=== PATIENT | male | born 1970 | race Caucasian/White ===

== ENCOUNTER 2023-09-05 14:36 | Inpatient (IN) | payer BC, SELFPAY ==
[2023-09-05] VITALS (11 sets, daily range): BP systolic 74–164; BP diastolic 88–100; BMI 23.7
[2023-09-05] MEDS: OMNIPAQUE 50 ML PO (08:46)
--- NOTE | 2023-09-05 09:22 | ED.GENMED ---
History of Present Illness
General
Chief Complaint: Post Operative Problem(s)
Source: patient and spouse
Exam Limitations: none
Time Seen by Provider: 09/05/23 08:30
Travel History
Have you had any contact with someone who has COVID-19?: No
Do you have any symptoms of coronavirus? Fever > 100 degrees, chills, cough, shortness of breath, sore throat, loss of taste or smell, muscle aches, or headache?: No
History of Present Illness
History of Present Illness:
53-year-old male presents with fever. Patient recently had ileostomy reversal. Patient is a history of colovesicular fistula. Patient woke up today and felt like something was wrong. measured his temperature and he was noted to be febrile.
Patient states he does have pain at his incision but does not feel any different than it had been. Is mostly there when he tries to move. He does admit that he felt little short of breath today. No real cough. No rash. No drainage from his
wound. No dysuria. Patient was discharged earlier this week but over the week progressed his diet.
Past History
Past History
ED Past Medical History: CHF, HTN, Hypercholesterolemia, [place] and Other (Diverticulitis, Takotsubo, sepsis. )
ED Past Surgical History: Orthopedic and Other (Loop ileostomy)
Social History
Tobacco: Former smoker
Alcohol: Former
Drug: None
Personal:
Living: with family
Phy Exam
Physical Exam
Physical Exam:
CONSTITUTIONAL Patient alert and oriented to person, place and time. Well-appearing. Vital signs reviewed.
HEAD atraumatic, normocephalic.
EYES eyelids normal to inspection, Pupils equally round and reactive to light, Extraocular muscles intact, Conjunctiva normal, Sclera normal.
NECK normal range of motion, Trachea midline, no jugular venous distention.
RESPIRATORY CHEST No respiratory distress noted, Chest expansion equal, Bilateral breath sounds clear.
CARDIOVASCULAR regular rate and rhythm, Heart sounds normal.
ABDOMEN right abdominal wound noted that is intact and without drainage or redness. There are gina intact. Bowel sounds normal. No distention.
BACK normal inspection, no obvious deformities
UPPER EXTREMITY range of motion normal, Motor strength normal, no cyanosis, no edema.
LOWER EXTREMITY range of motion normal, Motor strength normal, no cyanosis, no edema.
NEURO Speech normal, No focal motor deficits, Jonathan coma scale 15, Memory normal, Cranial Nerves intact to screening exam.
SKIN skin warm, dry, and normal in color.
PSYCHIATRIC patient oriented to person place and time, Normal affect.
Course
Orders/Labs/Results
Orders:
Orders
09/05/23
US Abdomen Limited Urgent
Reason For Exam: DONE IN [facility] - NO FLUID FOR PARA
09/05/23 08:31
CT Abd/pel W Iv And Oral Contr Urgent
Comment:
Reason For Exam: abd pain, recent ileostomy reversal, fever
Iohexol [Omnipaque] See Protocol PO NOW STA
09/05/23 08:57
Diphenhydramine [Benadryl] 50 mg IV NOW STA
Hydrocortisone Sod Succinate [Solu-Cortef] 200 mg IV NOW STA
09/05/23 09:03
Complete Blood Count/With Diff Urgent
Comprehensive Metabolic Panel Urgent
Lipase Urgent
09/05/23 09:10
CR Chest - 2 Views Urgent
Comment:
Reason For Exam: fever
09/05/23 09:12
0.9% Sodium Chloride 1000 ml [Nss] 1,000 ml IV BOLUS
09/05/23 09:52
COVID-19 Antigen Urgent
Source: Nasal Swab
Lactic Acid Q4H
Comment: CANCEL 2nd LACTIC ACID IF 1st LACTIC ACID IS LESS THAN 2
Blood Culture Q30M
YUMIKO Source: Blood/Venous
Specimen Description:
Blood Culture Q30M
YUMIKO Source: Blood/Venous
Specimen Description:
Influenza A+B Rapid Molecular Stat
YUMIKO Source: Nasal Swab
Specimen Description:
09/05/23 10:42
Morphine Sulfate 4 mg IV NOW STA
09/05/23 11:49
HYDROmorphone [Dilaudid] 0.5 mg IV NOW STA
09/05/23 11:52
Urinalysis Reflex To Culture Urgent
Date Specimen was Collected: 09/05/23
Time Specimen was Collected: 11:52
09/05/23 12:05
Consult Interventional Radiology [[facility] CONSULT] Urgent
Consulting Provider: Fabio Gordon
Was physician already notified: Yes
Reason for consult: aspiration of pelvic fluid
09/05/23 12:17
Bladder Scan NOW
Follow Bladder Retention/Intermittent Cath Algorithm?: No
09/05/23 12:21
Cefepime HCl [Maxipime] 2,000 mg IV NOW STA
Vancomycin 1 Gram/200 ml [Vancocin] 1 gram in 200 ml IV NOW
09/05/23 13:15
Lactic Acid Q4H
Comment: CANCEL 2nd LACTIC ACID IF 1st LACTIC ACID IS LESS THAN 2
Abnormal Lab Results
09/05/23
09:03
WBC 4.4 L 10^3/uL
(4.8-10.8)
RBC 3.47 L 10^6/uL
(4.70-6.10)
Hgb 10.5 L g/dL
(13.0-18.0)
Hct 32.7 L %
(39.0-52.0)
MCV 94.2 H fL
(80.0-94.0)
MCHC 32.1 L g/dL
(33.0-37.0)
MPV 11.6 H fL
(7.4-10.4)
Absolute Lymphs (auto) 0.4 L 10^3/uL
(1.2-3.4)
Neutrophils % 77.9 H %
(42.2-75.2)
Lymphocytes % 9.4 L %
(20.5-51.1)
Monocytes % 10.8 H %
(1.7-9.3)
Potassium 3.3 L mmol/L
(3.5-5.1)
Carbon Dioxide 31 H mmol/L
(22-30)
Glucose 100 H mg/dl
(70-99)
ALT 54 H U/L
(0-50)
09/05/23 09:03
09/05/23 09:03
Vital Signs
Initial and Last Documented VS:
Initial Vital Signs
Temp Pulse Resp BP Pulse Ox
101.3 F H 71 20 133/88 94
09/05/23 08:24 09/05/23 08:24 09/05/23 08:24 09/05/23 08:24 09/05/23 08:24
Last Documented Vital Signs
Temp Pulse Resp BP Pulse Ox
99.5 F 73 28 148/95 89
09/05/23 12:02 09/05/23 13:04 09/05/23 13:04 09/05/23 12:02 09/05/23 13:04
MDM/Problems Addressed
Differential Diagnosis Includes:
Wound infection, atelectasis, pneumonia, COVID, influenza, intra-abdominal infection, electrolyte imbalance
MDM/Problems Addressed:
Fever
*Pulse Oximetry
Patient hypoxic: no
*Cash Checker Interpretation
Rate: normal
Interpretation: normal
Rhythm: sinus
*Critical Care Note
Total Time (30-74mins, 75-104mins- exclusive of procedures): Not Applicable
Data Reviewed
Review of Other/Old Records Reveals: Operative Reports (August operative note reviewed) and Discharge Summary (August 2023 discharge packet reviewed)
Source: patient and spouse
Prescriptions/Medications Considered But Not Given:
Considered antibiotics but hold off pending testing for now
ED Attending Note
-
Portions of this chart may have been created with voice recognition software.� Occasional wrong word or��sound alike� substitutions may have occurred due to the inherent limitations of voice recognition software.
Discharge Plan
Departure
Prescriptions:
No Action
trazodone 50 mg Tablet
50 mg PO HS
Entresto 24-26 mg tablet
0.5 tab PO BID
folic acid 1 mg Tablet
1 mg PO DAILY
gabapentin 100 mg capsule
100 mg PO TID
magnesium oxide 500 mg Tablet
500 mg PO DAILY Qty: 30 0RF
cholecalciferol (vitamin D3) [Thera-D] 50 mcg (2,000 unit) tablet
50 mcg PO DAILY Qty: 30 0RF
potassium 99 mg Tablet
99 mg PO DAILY
nicotine 21 mg/24 hr Patch 24 Hour
1 patch TRANSDERMAL DAILY
metoprolol succinate [Toprol XL] 50 mg Tablet Extended Release 24 Hr
50 mg PO BID
cyanocobalamin (vitamin B-12) 1,000 mcg Tablet
1,000 mcg PO DAILY
aspirin 81 mg Tablet,Delayed Release (Dr/Ec)
81 mg PO DAILY
pantoprazole [Protonix] 40 mg Tablet,Delayed Release (Dr/Ec)
40 mg PO DAILY
rosuvastatin [Crestor] 20 mg Tablet
20 mg PO QPM
tramadol 50 mg tablet
50 mg PO HS
Referrals:
Sanjay Tovar MD [Family Provider] -
Interventions
Interventions:
ED-Skin Assessment Last Done: 09/05/23 09:45
[2023-09-05 09:28] LABS: % Basophils 0.5 % (0-2); % Eosinophils 0.9 % (0-6); % Immature Granulocytes 0.5 % (0-0.5); % Lymphocytes 9.4 % (20.5-51.1); % Monocytes 10.8 % (1.7-9.3); % Neutrophils 77.9 % (42.2-75.2); Absolute Lymphocytes 0.4 10^3/uL (1.2-3.4); Absolute Monocytes 0.5 10^3/uL (0.1-0.6); Absolute Neutrophils 3.4 10^3/uL (1.4-6.5); Hematocrit 32.7 % (39.0-52.0); Hemoglobin 10.5 g/dL (13.0-18.0); Mean Corp Hgb Conc. 32.1 g/dL (33.0-37.0); Mean Corpuscular Hgb 30.3 pg (27.0-31.0); Mean Corpuscular Volume 94.2 fL (80.0-94.0); Mean Platelet Volume 11.6 fL (7.4-10.4); Nucleated Red Blood Cells % 0 % (-); Platelet Count 162 10^3/uL (130-400); Red Blood Cell Count 3.47 10^6/uL (4.70-6.10); Red Cell Dist. Width 13.5 % (11.5-14.5); White Blood Cell Count 4.4 10^3/uL (4.8-10.8)
[2023-09-05 09:44] LABS: ALT (SGPT) 54 U/L (0-50); AST (SGOT) 51 U/L (17-59); Alkaline Phosphatase 84 U/L (38-126); Blood Urea Nitrogen 10 mg/dl (9-20); Calcium 8.7 mg/dl (8.4-10.2); Carbon Dioxide 31 mmol/L (22-30); Chloride 100 mmol/L (98-107); Glucose 100 mg/dl (70-99); Lipase 83 U/L (23-300); Potassium 3.3 mmol/L (3.5-5.1); Sodium 137 mmol/L (135-145); Total Bilirubin 0.4 mg/dl (0.2-1.3); Total Protein 6.4 g/dl (6.3-8.2); eGFR > 60.00
[2023-09-05 10:05] LABS: Lactic Acid 0.9 mmol/L (0.7-2.0)
[2023-09-05] MEDS: NSS 1000 IV ×2 (10:14→16:02)
[2023-09-05 11:12] LABS: COVID-19 Antigen Negative (Negative)
[2023-09-05] MEDS: DILAUDID 0.5 MG IV ×3 (11:54→20:57)
[2023-09-05 12:09] LABS: Urine Albumin Trace (Neg - Trace); Urine Bilirubin Negative (Negative); Urine Character Clear (Clear); Urine Color Yellow; Urine Glucose Negative (Negative); Urine Ketone Negative (Negative); Urine Leukocyte Negative (Negative); Urine Nitrite Negative (Negative); Urine Occult Blood Negative (Negative); Urine Specific Gravity 1.005 (<1.030); Urine Urobilinogen Negative (Neg - 1+)
[2023-09-05] MEDS: MAXIPIME 2000 MG IV (13:05)
[2023-09-05] MEDS: VANCOCIN 200 IV (13:06)
--- NOTE | 2023-09-05 13:37 | HPS.HSE ---
Addendum entered and electronically signed by Hardik Mazariegos MD 09/05/23 14:18:
I saw and examined the patient.
The PA's note was reviewed and I agree with the note.
Comment:
Seen in am with PA.
History, vitals, labs, imaging reviewed. Patient seen and examined.
53 yo M POD 9 s/p loop ileostomy takedown by me with increased abdominal pain/fever this am of unclear cause. Tm 101.3 in ER. HR normal (on Beta blockade). WBC 4.4 with left shift; lytes and lactate ok. UA negative. Imaging reviewed with Drs.
Curtis and Heidi. CXR and CT with basilar lung opacities. CT with no free air or obstruction; no extravasation of oral contrast at SB anastomosis; pelvic anastomosis looks reasonable; small volume free fluid in pelvis--US aspiration
considered by IR but unable to be performed due to technical issues. On exam patient's incision looks fine. Fairly tender lower abdomen. Tough situation as cause of fever and pain not clear and exam difficult to interpret as I recall him being
sensitive on abdominal exam after his prior 2 surgeries. Discussed situation in detail with his patient and his . I told them exploratory laparotomy is an option however there is no obvious anastomotic leak radiographically. Another option
would be medical support, empiric antibiotics and seeing how he does. Decided jointly to admit, empiric IV antibiotics, pain management, IV hydration and seeing how he does. If no improvement surgery will be considered. All questions answered.
Original Note:
Family Physician
-
Family Physician: Sanjay Tovar
Chief Complaint
-
abdominal pain/fever/sob
History of Present Illness
53-year-old male, with recent ileostomy reversal, presents to the emergency department due to intense abdominal pain, fever, and shortness of breath that started at 4 AM this morning. He underwent an ileostomy reversal on 08/27/[address] Mazariegos
due to a prior history of a loop ileostomy secondary to sigmoid diverticulitis with colovesical fistula. He was discharged on postop day 5. Prior to this he had underwent a robotic sigmoidectomy, takedown of colovesical fistula, loop ileostomy on
06/04/2023. He has been doing well until this morning. In the ER his WBC is 4.4. He has a fever of 101.3. He underwent a CT abdomen and pelvis which showed bibasilar atelectasis, mild ascites, and intact anastomosis, and moderately distended
urinary bladder. He was brought to IR for an attempt at aspirating some of the pelvic fluid, however this was not successful due to the deep location. He was started on cefepime and vancomycin while in the ER. We are admitting for further fever
workup.
Medical History
Past Medical History
Past Medical History: Reports Other (colovesicular fistula and interloop colonic fistulas/sigmoid diverticulitis status post recent robotic sigmoidectomy with takedown of fistula and washout, history of prostatic abscess status post pelvic drain,
chronic anemia, Takotsubo cardiomyopathy, GERD, hyponatremia, alcohol use disorder, former)
Past Surgical History: Reports Other (robotic sigmoidectomy with takedown of colovesicular fistula with loop ileostomy creation and cystoscopy placement of bilateral ureteral catheters with urology, recent ileostomy reversal with Dr. Mazariegos on
08/27/2023)
Social History
Tobacco: Non-smoker
Alcohol: Former
Personal:
Family History
Family History: Not pertinent
Allergies / Home Medications
Allergies reflects when Allergies were last updated in [employer].
Home Medications with original date entered in [employer]
Allergy/Medication List:
Allergies:
Codeine - nausea/vomiting
Ibuprofen - unknown
Morphine - hypotension
Medications:
Aspirin 81mg po daily
Vitamin D3 50mcg po daily
Vitamin B-12 1000mcg po daily
Entreto 0.5 tab po BID
Folic Acid 1mg po Daily
Gabapentin 100mg po TID
Magnesium Oxide 500mg po daily
Toprol XL 50 mg BID
Nicotine 1patch daily
Protonix 40mg po daily
Crestor 20mg po qPM
Tramadol 50mg po HS
Trazodone 50mg po HS
Review of Systems
-
History Source: Patient
A 12 point ROS was completed and negative except as noted: Yes
Constitutional: Reports Fever
Respiratory: Reports Trouble Breathing
Abdomen/GI: Reports Abdominal Pain
Physical Exam
Vital Signs
Vital Signs
Temp Pulse Resp BP Pulse Ox
99.5 F 73 28 148/95 89
09/05/23 12:02 09/05/23 13:04 09/05/23 13:04 09/05/23 12:02 09/05/23 13:04
Physical Exam
General: Well Developed and Well Nourished
HEENT: NormoCephalic
GI: Soft, Tender (RLQ over incision, moderate) and Other (incision c/d/i)
Skin: Warm and Dry
Neuro: AO x 3
Laboratory Results
-
09/05/23 09:03
09/05/23 09:03
Laboratory Results
Lactic Acid 0.9 mmol/L (0.7-2.0) 09/05/23 09:52
Total Bilirubin 0.4 mg/dl (0.2-1.3) 09/05/23 09:03
AST 51 U/L (17-59) 09/05/23 09:03
ALT 54 U/L (0-50) H 09/05/23 09:03
Alkaline Phosphatase 84 U/L (38-126) 09/05/23 09:03
Lipase 83 U/L (23-300) 09/05/23 09:03
Data Reviewed
-
Diagnostic Radiology: Image Personally Visualized and interpreted, Report Reviewed by me, Discussed with Physician and Discussed with Patient
CT Scan: Image Personally Visualized and interpreted, Report Reviewed by me, Discussed with Physician and Discussed with Patient
Lab Data: Labs Reviewed by me, Discussed with Physician and Discussed with Patient
Old Records: Reviewed
Impression/Plan
-
Assessment: 53yo male with fever/sob/abdominal pain s/p recent ileostomy reversal
Plan:
1. CT A/P reviewed with IR. Unable to sample abdominal fluid.
2. Will start on IV Zosyn.
3. Continue NPO for now. Will start IVFS.
4. Urine cultures and blood cultures pending.
5. DVT prophylaxis.
6. Consult hospitalist for fever w/u.
7. Hypokalemia - repleting with 20meq K+. Recheck labs in Am.
8. Will hold on OR for now, but if worsens, will need to do an exploratory laparotomy. Discussed in length with patient and who are in agreement with plan.
--- NOTE | 2023-09-05 14:28 | CON.HOSP ---
Family Physician
-
Family Physician: Sanjay Tovar
Chief Complaint
-
Fever at home
History of Present Illness
54 years old male presented with fever and shivering from home. Patient underwent an ileostomy reversal on 08/27/[address] Mazariegos. No complications reported. Patient had loop ileostomy secondary to sigmoid diverticulitis with colovesical fistula.
Patient was discharged home. He denied abdominal pain. He was tolerating diet until today. He started to have abdominal discomfort and fever. He reported shortness of breath but no cough. In the emergency room, CAT scan of the abdomen pelvis
did not show free air or free fluid other than mild ascites. Ultrasound showed small ascites, unable to drain by IR. COVID test was negative. Urine test did not show infection. Patient is admitted for empiric IV antibiotic and close observation
for possible surgical exploration for possible leak if no improvement.
Medical History
Past Medical History
Past Medical History: Reports Other ( Hypertension, hyperlipidemia, anxiety, history of diverticulitis, tobacco use, Takotsubo cardiomyopathy)
Past Surgical History: Reports Other (Recent reversal of ileostomy on August 27)
Social History
Tobacco: Former Smoker
Alcohol: None
Drug: None
Personal:
Living: With Family
Employment: Employed
Family History
Family History: Reviewed & Not Pertinent
Allergies / Home Medications
Allergies reflects when Allergies were last updated in [employer].
Home Medications with original date entered in [employer]
Allergy/Medication List:
Allergies
Allergy/AdvReac Type Severity Reaction Status Date / Time
codeine Allergy Nausea / Verified 08/27/23 11:35
Vomiting
ibuprofen Allergy Pharmacy Verified 08/28/23 09:19
to Review
morphine Allergy Unknown Verified 09/05/23 08:23
Home Medications
trazodone 50 mg tablet 50 mg PO HS sleep 04/24/23
folic acid 1 mg tablet 1 mg PO DAILY Supplement 05/29/23
sacubitril 24 mg-valsartan 26 mg tablet (Entresto) 0.5 tab PO BID Heart Failure 05/29/23
gabapentin 100 mg capsule 100 mg PO TID Neurological Condition 07/02/23
cholecalciferol (vitamin D3) 50 mcg (2,000 unit) tablet (Thera-D) 50 mcg PO DAILY vit d defeciency #30 tabs 07/07/23
magnesium oxide 500 mg PO DAILY Electrolyte Repletion #30 tabs 07/07/23
nicotine 21 mg/24 hr daily transdermal patch 1 patch transdermal DAILY 08/21/23
potassium 99 mg tablet 99 mg PO DAILY 08/21/23
aspirin 81 mg tablet,delayed release 81 mg PO DAILY 09/05/23
cyanocobalamin (vitamin B-12) 1,000 mcg tablet 1,000 mcg PO DAILY 09/05/23
metoprolol succinate 50 mg tablet,extended release 24 hr (Toprol XL) 50 mg PO BID 09/05/23
pantoprazole 40 mg tablet,delayed release (Protonix) 40 mg PO DAILY 09/05/23
rosuvastatin 20 mg tablet (Crestor) 20 mg PO QPM 09/05/23
tramadol 50 mg tablet 50 mg PO HS 09/05/23
Review of Systems
-
History Source: Patient
A 12 point Review of Systems was completed except as noted: Yes
Constitutional: Reports Fever and Chills
EENT: Denies Sore Throat
Respiratory: Denies Hemoptysis
Cardiac: Denies Chest Pain
Abdomen/GI: Reports Abdominal Pain, Nausea and Vomiting
: Denies Dysuria
Musculoskeletal: Denies Joint Pain
Skin: Denies Rash
Neurological: Denies Numbness
Endocrine: Denies Temp Intolerance
Hematologic/Lymphatic: Denies Bruising
Psych: Denies Panic Disorder
Physical Exam
Vital Signs
Vital Signs
Temp Pulse Resp BP Pulse Ox
99.5 F 73 28 148/95 89
09/05/23 12:02 09/05/23 13:04 09/05/23 13:04 09/05/23 12:02 09/05/23 13:04
Physical Exam
General: Well Developed
HEENT: Anicteric and Moist Mucous Membranes
Respiratory: Clear and Other (Some rales at the bases)
Cardiac: S1/S2 and Regular Rhythm
GI: Soft and Other (Cleaned dressing on site of surgery)
Rectal: Negative Maroon Stools
Genito-urinary: No Costovertebral Tend
Musculoskeletal: No Edema
Skin: Warm; Negative Jaundice
Neuro: AO x 3; Negative Slurred Speech, Facial Droop or Tremors
Psych: Calm and Intact Judgement
Laboratory Results
-
Laboratory Results
09/05/23 09:03
09/05/23 09:03
Lactic Acid 0.9 mmol/L (0.7-2.0) 09/05/23 09:52
Total Bilirubin 0.4 mg/dl (0.2-1.3) 09/05/23 09:03
AST 51 U/L (17-59) 09/05/23 09:03
ALT 54 U/L (0-50) H 09/05/23 09:03
Alkaline Phosphatase 84 U/L (38-126) 09/05/23 09:03
Lipase 83 U/L (23-300) 09/05/23 09:03
Impression / Plan
-
IMPRESSION:
53 years old male who presented with fever and complaint of abdominal pain status post recent reversal of ileostomy
#Fever, abdominal discomfort. Recent abdominal surgery.
Continue citrate NPO. Bowel rest. IV fluid. Empiric antibiotic. GI prophylaxis with PPI close monitoring of temperature curve and clinical symptoms.
#Nausea and vomiting. Will give IV Zofran.
# Primary hypertension. He is on Entresto twice a day with metoprolol.
Will continue with metoprolol but changed to IV and cardiac monitoring. Hold Entresto for now.
# DVT prophylaxis
Total time spent to see the patient on the floor, examine the patient, review data and lab results, discuss treatment plan with patient, his , ER doctor and nursing staff around 75 minutes
[2023-09-05] MEDS: ZOFRAN 4 MG IV (15:16)
[2023-09-05] MEDS: KCL 260 MEQ IV (15:19)
[2023-09-05] MEDS: LOVENOX 40 MG SC (19:30)
[2023-09-05] MEDS: ZOSYN 50 IV (19:31)
--- NOTE | 2023-09-05 19:59 | PTCARENOTE ---
Pt came from ED with potassium running and on 2L O2. Placed on tele #[id number] NSR. Oriented to room and use of call parker. Call parker within reach.
[2023-09-06] VITALS (7 sets, daily range): BP systolic 138–166; BP diastolic 70–93
[2023-09-06] MEDS: NSS 1000 IV ×3 (00:46→13:30)
[2023-09-06] MEDS: ZOSYN 50 IV ×5 (00:46→23:19)
[2023-09-06] MEDS: DILAUDID 0.5 MG IV ×5 (02:05→23:27)
[2023-09-06 07:00] LABS: % Basophils 0.4 % (0-2); % Eosinophils 0.4 % (0-6); % Immature Granulocytes 0.4 % (0-0.5); % Lymphocytes 30.5 % (20.5-51.1); % Monocytes 12.7 % (1.7-9.3); % Neutrophils 55.6 % (42.2-75.2); Absolute Lymphocytes 1.5 10^3/uL (1.2-3.4); Absolute Monocytes 0.6 10^3/uL (0.1-0.6); Absolute Neutrophils 2.8 10^3/uL (1.4-6.5); Hematocrit 28.7 % (39.0-52.0); Hemoglobin 9.1 g/dL (13.0-18.0); Mean Corp Hgb Conc. 31.7 g/dL (33.0-37.0); Mean Corpuscular Hgb 30.3 pg (27.0-31.0); Mean Corpuscular Volume 95.7 fL (80.0-94.0); Mean Platelet Volume 11.8 fL (7.4-10.4); Nucleated Red Blood Cells % 0 % (-); Platelet Count 147 10^3/uL (130-400); Red Cell Dist. Width 13.7 % (11.5-14.5)
[2023-09-06 07:20] LABS: Blood Urea Nitrogen 12 mg/dl (9-20); Calcium 7.8 mg/dl (8.4-10.2); Carbon Dioxide 27 mmol/L (22-30); Chloride 104 mmol/L (98-107); Estimated Creatinine Clearance 74 ml/min; Glucose 87 mg/dl (70-99); Potassium 3.5 mmol/L (3.5-5.1); Sodium 135 mmol/L (135-145); eGFR > 60.00
[2023-09-06] MEDS: NSS (PRESERVATIVE FREE) 10 ML IV (09:14)
[2023-09-06] MEDS: PROTONIX IV 40 MG IV (09:15)
[2023-09-06] MEDS: ASPIR LOW (ENTERIC COATED) 81 MG PO (09:15)
--- NOTE | 2023-09-06 10:42 | W.PN.HOSP.TC ---
Addendum entered and electronically signed by Jacqueline Romero MD 09/06/23 13:11:
Addendum
Patient was sent for for CT chest to rule out PE and was unable to do it
Went to see pt, he just reported pain and could not lie flat
Medicate with IV Dilaudid and Zofran
CT result to follow
End
Original Note:
Today's Communication/Plan
-
.
Assessment / Plan
Assessment / Plan
Physical Exam
General: Well Developed
HEENT: Anicteric and Moist Mucous Membranes
Respiratory: Clear and Other (Some rales at the bases)
Cardiac: S1/S2 and Regular Rhythm
GI: Soft and Other (Cleaned� dressing on site of surgery) Tenderness in mid abdomen
Rectal: Negative Maroon Stools
Genito-urinary: No Costovertebral Tend
Musculoskeletal: No Edema
Skin: Warm; Negative Jaundice
Neuro: AO x 3; Negative Slurred Speech, Facial Droop or Tremors
Psych: Calm and Intact Judgement
53 years old male who presented with fever and complaint of abdominal pain status post recent reversal of ileostomy
#Fever, abdominal discomfort.� Recent abdominal surgery. Suspect acute peritonitis.
He reports that pain in abdomen is the same, no fevers this morning
Continue NPO.� Bowel rest.� IV fluid.� Empiric antibiotic.� GI prophylaxis with PPI close monitoring of temperature curve and clinical symptoms.
#Nausea and vomiting.� Seems not significant, c/w PRN IV Zofran.
# Bilateral basal atelectasis
SaO2 around 99% on RA
Chest x ray no active disease
c/w O2, encourage use of incentive spirometry
# Primary hypertension.� He is on Entresto twice a day with metoprolol.
Add PRN Hydralazine
# Sinus bradycardia, cut back on BB with hodling parameters.
# DVT prophylaxis
# Hypokalemia, resolved.
Total time spent to see the patient on the floor, examine the patient, review data and lab results, discuss treatment plan with patient, and nursing staff around 55 minutes
Anticipated Discharge: > 48 hours
Subjective/Interval History
-
Date of Service: September 06, 2023
Still in pain, no nausea or fever this morning
Objective Data
-
Labs:
Laboratory Results
09/06/23
06:43
WBC 5.0
Hgb 9.1 L
Hct 28.7 L
Plt Count 147
Sodium 135
Potassium 3.5
Chloride 104
Carbon Dioxide 27
BUN 12
Creatinine 1.2
Glucose 87
Calcium 7.8 L
Vital Signs:
Vital Signs
Temp Pulse Resp BP Pulse Ox
98.6 F 52 16 140/89 99
09/06/23 07:50 09/06/23 07:50 09/06/23 07:50 09/06/23 07:50 09/06/23 07:50
I&O
09/05/23 09/06/23 09/07/23
06:59 06:59 06:59
Intake Total 50 / 50
Balance 50 / 50
--- NOTE | 2023-09-06 10:46 | CM ---
CM following re: discharge planning.
Reviewed pt's chart, met with pt.
Pt is a 53 year old male, admitted with primary dx of
Patient stated he lives with his and two adult sons, 24, 21 in a two story home with two steps to enter and one full flight of steps from the first floor to the second.
Patient described himself as independent with his ADLs, bathing, dressing and personal care. He drives and can get to his appointments. 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 If patient is unable to drive either his
sons take him to his appointments, do the shopping or his assists. Pt is known to [facility]. No SNF history.
Patient has hand rails, a shower chair and a grab bar in the shower.
PCP: Dr. Sanjay Tovar.
Pharmacy: [facility]
D/C plan: home with anticipated no needs. spouse to transport.
CM will follow with discharge plan updates as hospitalization progresses
[2023-09-06] MEDS: LOPRESSOR IV ×3 (11:20→17:36)
--- NOTE | 2023-09-06 11:21 | W.PN.CRS1 ---
Addendum entered and electronically signed by Hardik Mazariegos MD 09/06/23 14:42:
I saw and examined the patient.
The PA's note was reviewed and I agree with the note.
Comment:
Seen earlier with PA.
Abdominal discomfort about the same. Had a regular BM earlier. Denies nausea or vomiting. Admits to dyspnea.
Vitals reasonable. White count normal at 5.0.
Abdomen nondistended. Incision looks good. Still with some lower abdominal tenderness. No skin changes.
Given dyspnea, I was concerned about the possibility of DVT/PE. Lower extremity ultrasound and CT chest to rule out PE was ordered and performed. No evidence for DVT or PE. Bibasilar infiltrate noted with possible progression. Question pneumonia.
Continue antibiotics. Keep n.p.o. for now. Hope to resume diet tomorrow.
Appreciate hospitalist help.
Original Note:
Today's Communication / Plan
-
CT chest
LE U/S
remain NPO
Assessment/Plan
-
Assessment: 53yo male with fever/sob/abdominal pain s/p recent ileostomy reversal
Plan:
1. WBC improved, now 5.0. Afebrile overnight.
2. Continue IV Zosyn.
3. Continue NPO for now. Continue IVFs.
4. Blood cultures pending.
5. DVT prophylaxis.
6. Consult hospitalist for fever w/u.
7. Given SOB, will order LE U/S and CT chest PE protocol.
8. Will hold on OR for now, but if worsens, will need to do an exploratory laparotomy.
Subjective Data
Subjective Data
Date of Service: September 06, 2023
Patient states he had sweats overnight that broke. He is still short of breath. He has no leg pain. His abdominal pain has lessened.
Objective Data
-
Vital Signs
Temp Pulse Resp BP Pulse Ox
98.4 F 53 16 146/93 98
09/06/23 10:57 09/06/23 10:57 09/06/23 10:57 09/06/23 10:57 09/06/23 10:57
Intake & Output
09/05/23 09/06/23 09/07/23
06:59 06:59 06:59
Intake Total 50 / 50
Balance 50 / 50
Intake:
Oral fluids 50 / 50
Other:
Number of approximated MODERATE 2
amounts of urine
Lab Results
09/06/23 06:43
09/06/23 06:43
Physical Exam
-
General: No Acute Distress and AOx3
Abdomen: Soft, Non Distended and Tender (RLQ - mild)
Skin: Warm and Dry
Incision: Clear, Dry, Intact
[2023-09-06] MEDS: ZOFRAN 4 MG IV (12:26)
[2023-09-06] MEDS: LOVENOX 40 MG SC (17:39)
[2023-09-06] MEDS: APRESOLINE 5 MG IV (20:18)
[2023-09-06] MEDS: DESYREL 50 MG PO (22:11)
[2023-09-06] MEDS: LOPRESSOR 2.5 MG IV (23:18)
[2023-09-07] MEDS: NSS 1000 IV ×2 (00:14→12:35)
[2023-09-07 03:13] VITALS: BP 149/90
[2023-09-07] MEDS: DILAUDID 0.5 MG IV ×5 (05:06→21:55)
[2023-09-07] MEDS: ZOSYN 50 IV ×4 (05:06→23:06)
[2023-09-07] MEDS: LOPRESSOR IV ×3 (05:36→17:12)
[2023-09-07 06:00] VITALS: BMI 24.6
[2023-09-07 06:41] LABS: Hematocrit 28.9 % (39.0-52.0); Hemoglobin 9.3 g/dL (13.0-18.0); Mean Corp Hgb Conc. 32.2 g/dL (33.0-37.0); Mean Corpuscular Hgb 29.7 pg (27.0-31.0); Mean Corpuscular Volume 92.3 fL (80.0-94.0); Mean Platelet Volume 11.6 fL (7.4-10.4); Platelet Count 141 10^3/uL (130-400); Red Blood Cell Count 3.13 10^6/uL (4.70-6.10); Red Cell Dist. Width 13.4 % (11.5-14.5); White Blood Cell Count 5.4 10^3/uL (4.8-10.8)
[2023-09-07 07:00] VITALS: BP 130/86
[2023-09-07 07:50] LABS: ALT (SGPT) 49 U/L (0-50); AST (SGOT) 34 U/L (17-59); Albumin 3.1 g/dl (3.5-5.0); Alkaline Phosphatase 94 U/L (38-126); Blood Urea Nitrogen 9 mg/dl (9-20); Calcium 7.8 mg/dl (8.4-10.2); Carbon Dioxide 23 mmol/L (22-30); Chloride 100 mmol/L (98-107); Estimated Creatinine Clearance 69 ml/min; Glucose 64 mg/dl (70-99); Potassium 3.4 mmol/L (3.5-5.1); Sodium 133 mmol/L (135-145); Total Bilirubin 0.5 mg/dl (0.2-1.3); Total Protein 5.3 g/dl (6.3-8.2); eGFR > 60.00
[2023-09-07] MEDS: ASPIR LOW (ENTERIC COATED) 81 MG PO (08:49)
[2023-09-07] MEDS: NSS (PRESERVATIVE FREE) 10 ML IV (08:49)
[2023-09-07] MEDS: PROTONIX IV 40 MG IV (08:50)
[2023-09-07 11:00] VITALS: BP 143/90
--- NOTE | 2023-09-07 11:06 | W.PN.CRS1 ---
Today's Communication / Plan
-
clears
continue iv abx
Assessment/Plan
-
Assessment: 53yo male with fever/sob/abdominal pain s/p recent ileostomy reversal
Plan:
1. WBC improved, now 5.4. Afebrile overnight. Vitals normal.
2. Continue IV Zosyn.
3. Advance diet to clears. Okay for fulls later today if tolerating.
4. Blood cultures pending.
5. DVT prophylaxis.
6. Appreciate hospitalist input.
7. Lidocaine patch to RLQ area.
8. No plans for surgery at this time. Observe.
Subjective Data
Subjective Data
Date of Service: September 07, 2023
Patient states he is still short of breath. He has right lower quadrant pain when he moves. This is unchanged to surgery. His bowel movements are regular. He is hungry.
Objective Data
-
Vital Signs
Temp Pulse Resp BP Pulse Ox
98.1 F 56 18 130/86 92
09/07/23 07:00 09/07/23 07:00 09/07/23 07:00 09/07/23 07:00 09/07/23 07:00
Intake & Output
09/06/23 09/07/23 09/08/23
06:59 06:59 06:59
Intake Total 1520 / 1520
Balance 1520 / 1520
Intake:
Oral fluids 170 / 170
IV fluids (Total) 1200 / 1200
IV piggybacks 150 / 150
Other:
Number of approximated MODERATE 2
amounts of urine
Number of approximated LARGE 1
amounts of urine
Lab Results
09/07/23 06:17
09/07/23 06:17
Physical Exam
-
General: No Acute Distress and AOx3
Abdomen: Soft, Non Distended and Tender (RLQ - over incision, unchanged)
Wound: No Signs of Infection
--- NOTE | 2023-09-07 12:07 | W.PN.HOSP.TC ---
Addendum entered and electronically signed by Tomás Gill MD 09/07/23 17:46:
Patient seen and examined.
Discussed with resident.
Impression:
Status post recent ileostomy reversal presenting with abdominal pain.
Clinically no evidence for surgical complication/peritonitis.
Transient hypoxia/shortness of breath likely related to bilateral atelectasis. CT scan of the chest negative for pulmonary embolism.
Urinalysis negative.
Plan:
Diet been advanced to full liquid with plan to transition to low residue over the next 24.
Will discontinue empiric antibiotics and monitor
Wean off IV narcotics as tolerates
Wean off IV fluids as diet tolerating
Replete potassium
Monitor for worsening of hyponatremia
Original Note:
Today's Communication/Plan
-
- Kcl correction
- Monitor blood glucose levels
- Monitor for abdominal symptoms and diet toleration.
Assessment / Plan
Assessment / Plan
ASSESSMENT:
53 Yo M who presents to the ER with fever and abdominal pain on 09/02, s/p Ileostomy reversal.
PLAN:
-Fever, Abdominal Pain.�
Recent ileostomy reversal. Suspect acute peritonitis.
CT abdomen -Bibasilar atelectasis.
Mild ascites. No focal collection or abscess. No free air. No bowel obstruction or obstructive uropathy.
Anastomotic suture material in the sigmoid region. The anastomosis appears intact. No focal extraluminal air or fluid is suggested perforation.
Mid abdominal small bowel anastomosis appears widely patent. . Minimal wall thickening and subtle soft tissue stranding related to recent surgical procedure. No localized gas or fluid suggest perforation or abscess.
CT chest - No evidence of pulmonary embolus.
Moderate bibasilar consolidation which may be pneumonia or atelectasis. Progressed bilateral
Denies fever, pain in abdomen is 5/10 on sitting; 10/10 while lying flat.
Diet advanced to liquids, well tolerated.�
Empiric antibiotic.� GI prophylaxis with PPI.
Currently on Dilaudid
Bilateral basal atelectasis
SaO2 - stable on room air.
Chest x ray - no active disease.
c/w O2, encourage use of incentive spirometry.
Nausea and vomiting.�
Seems not significant, continue PRN IV Zofran.
Primary hypertension.�
He is on Entresto twice a day with metoprolol.
Currently on PRN Hydralazine
Hypokalemia -
Resolved yesterday.
09/07 - 3.4, correct with oral Kcl
Hyponatremia -
Na 09/07 -133
Monitor Serum sodium levels
Sinus bradycardia
Currently on reduced dose of metoprolol with holding parameters.
Anemia -
hb -9.3, low hematocrit and normal RDW.
DVT prophylaxis
LMWH
Anticipated Discharge: > 48 hours
Subjective/Interval History
-
Date of Service: September 07, 2023
Abdominal pain at rest - 5/10
Abdominal pain when lying flat - 10/10
Reports tightness and tenderness at the incision site.
Denies nausea, vomiting, and
Objective Data
-
Labs:
Laboratory Results
09/07/23
06:17
WBC 5.4
Hgb 9.3 L
Hct 28.9 L
Plt Count 141
Sodium 133 L
Potassium 3.4 L
Chloride 100
Carbon Dioxide 23
BUN 9
Creatinine 1.3
Glucose 64 L
Calcium 7.8 L
Total Bilirubin 0.5
AST 34
ALT 49
Alkaline Phosphatase 94
Vital Signs:
Vital Signs
Temp Pulse Resp BP Pulse Ox
98.4 F 55 20 143/90 93
09/07/23 11:00 09/07/23 11:00 09/07/23 11:00 09/07/23 11:00 09/07/23 11:00
I&O
09/06/23 09/07/23 09/08/23
06:59 06:59 06:59
Intake Total 1520 / 1520
Balance 1520 / 1520
Review of Systems
-
History Source: Patient
Constitutional: Reports Other
Abdomen/GI: Reports Abdominal Pain (starts in the center of abdomen and radiates across the RLQ into the back.)
Genitourinary: Reports No Symptoms
Musculoskeletal: Reports No Symptoms
Neuro: Reports No Symptoms
Hematologic / Lymphatic: Reports No Symptoms
Physical Exam
-
General: No Apparent Distress and Comfortable
HEENT: Normocephalic, Atraumatic and Moist Mucous Membranes
Respiratory: Clear to Auscultation and Other (no wheezes, rales and ronchi)
Cardiac: Regular Rhythm and S1/S2
GI: Nondistended, Tender (in the right lower quadrant with gaurding) and Other (grugling bowel sounds.)
Musculoskeletal: No Edema
Skin: Warm
Neuro: AO x 3 and Nonfocal/Grossly Intact
Psych: Calm
[2023-09-07] MEDS: LIDOCAINE 4% PATCH 1 PATCH TOPICAL (12:39)
[2023-09-07] MEDS: KCL 40 MEQ PO (15:03)
[2023-09-07 15:58] VITALS: BP 144/87
[2023-09-07] MEDS: LOVENOX 40 MG SC (17:57)
[2023-09-07] MEDS: TUMS 2 TABLET PO (17:57)
[2023-09-07 19:15] VITALS: BP 154/87
[2023-09-07] MEDS: APRESOLINE 5 MG IV (23:07)
[2023-09-07 23:15] VITALS: BP 165/93
[2023-09-08] MEDS: LOPRESSOR IV ×2 (01:20→05:14)
[2023-09-08] MEDS: DILAUDID 0.5 MG IV ×6 (01:50→20:39)
[2023-09-08 02:52] VITALS: BP 143/89
[2023-09-08] MEDS: ZOSYN 50 IV ×2 (05:18→12:26)
[2023-09-08 06:00] VITALS: BMI 23.9
[2023-09-08 06:48] LABS: % Basophils 0.2 % (0-2); % Eosinophils 2.4 % (0-6); % Immature Granulocytes 0.2 % (0-0.5); % Lymphocytes 23.7 % (20.5-51.1); % Monocytes 11.8 % (1.7-9.3); % Neutrophils 61.7 % (42.2-75.2); Absolute Eosinophils 0.1 10^3/uL (0-0.7); Absolute Lymphocytes 1.1 10^3/uL (1.2-3.4); Absolute Monocytes 0.5 10^3/uL (0.1-0.6); Absolute Neutrophils 2.8 10^3/uL (1.4-6.5); Hematocrit 29.4 % (39.0-52.0); Hemoglobin 9.6 g/dL (13.0-18.0); Mean Corp Hgb Conc. 32.7 g/dL (33.0-37.0); Mean Corpuscular Hgb 29.7 pg (27.0-31.0); Mean Platelet Volume 11.7 fL (7.4-10.4); Nucleated Red Blood Cells % 0 % (-); Platelet Count 145 10^3/uL (130-400); Red Blood Cell Count 3.23 10^6/uL (4.70-6.10); Red Cell Dist. Width 13.2 % (11.5-14.5); White Blood Cell Count 4.5 10^3/uL (4.8-10.8)
[2023-09-08 07:00] VITALS: BP 152/88
[2023-09-08 07:17] LABS: Blood Urea Nitrogen 5 mg/dl (9-20); Calcium 8.4 mg/dl (8.4-10.2); Carbon Dioxide 26 mmol/L (22-30); Chloride 98 mmol/L (98-107); Estimated Creatinine Clearance 81 ml/min; Glucose 88 mg/dl (70-99); Potassium 3.3 mmol/L (3.5-5.1); Sodium 136 mmol/L (135-145); eGFR > 60.00
[2023-09-08] MEDS: ASPIR LOW (ENTERIC COATED) 81 MG PO (08:38)
[2023-09-08] MEDS: NSS (PRESERVATIVE FREE) 10 ML IV (08:39)
[2023-09-08] MEDS: LIDOCAINE 4% PATCH 1 PATCH TOPICAL (08:39)
[2023-09-08] MEDS: PROTONIX IV 40 MG IV (08:42)
[2023-09-08] MEDS: KCL 40 MEQ PO (10:48)
[2023-09-08 11:00] VITALS: BP 162/94
[2023-09-08 11:28] LABS: Iron 54 ug/dl (49-181)
[2023-09-08 11:32] LABS: Procalcitonin < 0.05 ng/ml (0.0-0.25)
[2023-09-08 11:38] LABS: Percent Saturation 21 % (20-50); Total Iron Binding Capacity 246 ug/dl (261-462)
--- NOTE | 2023-09-08 12:17 | W.PN.CRS1 ---
Addendum entered and electronically signed by Hardik Mazariegos MD 09/08/23 16:36:
I saw and examined the patient.
The PA's note was reviewed and I agree with the note.
Comment:
Patient seen in a.m. with PA.
Still admits to abdominal discomfort which is unchanged. Denies dyspnea at this point. Tolerating fulls with BMs.
Afebrile with stable vital signs. White blood cell count reasonable at 4.5.
Abdomen with some lower abdominal tenderness but no distention. Incisions look good without any skin erythema.
Diet advance to low residue.
Discussed his empiric antibiotics with Dr. Hernandez of the hospital service. Dr. Gill make stop the antibiotics altogether which I am comfortable with.
Hopefully home tomorrow.
Patient's updated via phone conversation.
Original Note:
Today's Communication / Plan
-
low residue
one more day of observation
Assessment/Plan
-
Assessment: 53yo male with fever/sob/abdominal pain s/p recent ileostomy reversal
Plan:
1. WBC improved, now 4.5. Afebrile overnight. Vitals normal.
2. Continue IV antibiotics.
3. Advance diet to low residue.
4. Blood cultures pending.
5. DVT prophylaxis.
6. Appreciate hospitalist input.
7. Anticipate keeping one more day for observation. Discussed with patient.
Subjective Data
Subjective Data
Date of Service: September 08, 2023
Objective Data
-
Vital Signs
Temp Pulse Resp BP Pulse Ox
97.8 F 68 16 152/88 94
09/08/23 07:00 09/08/23 07:00 09/08/23 07:00 09/08/23 07:00 09/08/23 07:00
Intake & Output
09/07/23 09/08/2309/09/24
06:59 06:59 06:59
Intake Total 1520 / 1520 100 / 100
Balance 1520 / 1520 100 / 100
Intake:
Oral fluids 170 / 170
IV fluids (Total) 1200 / 1200
IV piggybacks 150 / 150 100 / 100
Other:
Number of approximated MODERATE 2 3
amounts of urine
Number of approximated LARGE 1
amounts of urine
Lab Results
09/08/23 05:59
09/08/23 05:59
Physical Exam
-
General: No Acute Distress and AOx3
Abdomen: Soft, Non Distended and Tender (RLQ - tenderness over incision site)
Skin: Warm and Dry
Incision: Clear, Dry, Intact
[2023-09-08] MEDS: LOPRESSOR 2.5 MG IV ×2 (12:34→19:21)
[2023-09-08 15:00] VITALS: BP 149/92
--- NOTE | 2023-09-08 15:55 | W.PN.HOSP.TC ---
Addendum entered and electronically signed by Tomás Gill MD 09/08/23 16:30:
Patient seen and examined
Discussed with resident
Discussed with colorectal surgery
Incisional pain with otherwise benign abdominal examination
Diet has been advanced. Patient will be observed for another 24 hours for tolerance
Fever with transient episode of hypoxia
Patient currently afebrile with no evidence of respiratory infection
In review of imaging including CT scan negative for pulmonary embolism with bilateral atelectasis.
Normal white count
Undetectable procalcitonin level.
Most likely bilateral atelectasis and splinting due to pain.
Discontinue antibiotics and monitor closely.
Original Note:
Today's Communication/Plan
-
Continue IV antibiotics
Continue pain medications
Gay to be removed on Thursday
Serum potassium correction.
Assessment / Plan
Assessment / Plan
ASSESSMENT:
53 Yo M who presents to the ER with fever and abdominal pain on 09/02, s/p Ileostomy reversal.
PLAN:
-Fever, Abdominal Pain.�
Recent ileostomy reversal. Suspect acute peritonitis.
CT abdomen -Bibasilar atelectasis.
Mild ascites. No focal collection or abscess. No free air. No bowel obstruction or obstructive uropathy.
Anastomotic suture material in the sigmoid region. The anastomosis appears intact. No focal extraluminal air or fluid is suggested perforation.
Mid abdominal small bowel anastomosis appears widely patent. . Minimal wall thickening and subtle soft tissue stranding related to recent surgical procedure. No localized gas or fluid suggest perforation or abscess.
CT chest - No evidence of pulmonary embolus.
Moderate bibasilar consolidation which may be pneumonia or atelectasis. Progressed bilateral
Denies fever, pain in abdomen is 5/10 on sitting; 10/10 while lying flat.
Diet advanced to liquids, well tolerated.�
Empiric antibiotic.� GI prophylaxis with PPI.
Currently on Dilaudid
Bilateral basal atelectasis
SaO2 - stable on room air.
Chest x ray - no active disease.
Patient currently using spirometry once or twice a day.
Encourage use of incentive spirometry.
Nausea and vomiting - Resolved.�
continue PRN IV Zofran.
Primary hypertension.�
He is on Entresto twice a day with metoprolol.
Currently on PRN Hydralazine
Hypokalemia -
Resolved yesterday.
09/07 - 3.4, correct with oral Kcl
Serum magnesium levels.
Hyponatremia - resolved
Na 09/07 -133
Monitor Serum sodium levels
Sinus bradycardia
Currently on reduced dose of metoprolol with holding parameters.
Anemia -
hb -9.3, low hematocrit and normal RDW.
Iron studies ordered - Normal serum iron, low TIBC
Likely nutritional now.
DVT prophylaxis
LMWH
Anticipated Discharge: 24 - 48 hours
Subjective/Interval History
-
Date of Service: September 08, 2023
Patient still reports to have incisional pain about 5/10 in intensity
Surgical gina left in place.
rebound tenderness and gaurding at the surgical incision site.
Objective Data
-
Labs:
Laboratory Results
09/08/23
05:59
WBC 4.5 L
Hgb 9.6 L
Hct 29.4 L
Plt Count 145
Sodium 136
Potassium 3.3 L
Chloride 98
Carbon Dioxide 26
BUN 5 L
Creatinine 1.1
Glucose 88
Calcium 8.4
Vital Signs:
Vital Signs
Temp Pulse Resp BP Pulse Ox
98.2 F 55 16 162/94 94
09/08/23 11:00 09/08/23 12:34 09/08/23 11:00 09/08/23 12:34 09/08/23 11:00
I&O
09/07/23 09/08/23 09/09/23
06:59 06:59 06:59
Intake Total 1520 / 1520 100 / 100
Balance 1520 / 1520 100 / 100
Review of Systems
-
History Source: Patient
Constitutional: Reports Other (Severe pain at the incision site)
Respiratory: Reports No Symptoms
Cardiac: Reports No Symptoms
Abdomen/GI: Reports Abdominal Pain, Nausea (no), Vomiting (no), Diarrhea (no), Constipated, Bloody Stools (no), Black Stools (no) and Pain
Genitourinary: Reports No Symptoms
Musculoskeletal: Reports No Symptoms
Neuro: Reports No Symptoms
Physical Exam
-
General: No Apparent Distress and Comfortable
HEENT: Normocephalic, Atraumatic and Moist Mucous Membranes
Respiratory: Clear to Auscultation and Other (No wheezes, rales and ronchi)
Cardiac: Regular Rhythm, S1/S2 and Other (No murmurs, rubs and gallops)
GI: Tender (with gaurding at the incision site)
Genito-urinary: No Costovertebral Tender
Musculoskeletal: No Edema
Skin: Warm
Neuro: AO x 3 and Nonfocal/Grossly Intact
Psych: Calm
[2023-09-08 17:11] LABS: Magnesium 1.7 mg/dl (1.6-2.3)
[2023-09-08] MEDS: LOVENOX 40 MG SC (19:22)
[2023-09-08 20:05] VITALS: BP 149/88
[2023-09-08 23:10] VITALS: BP 154/90
[2023-09-09] MEDS: LOPRESSOR IV ×2 (00:06→06:13)
[2023-09-09] MEDS: DILAUDID 0.5 MG IV ×3 (00:07→08:51)
[2023-09-09 02:16] VITALS: BP 140/81
[2023-09-09 06:00] VITALS: BMI 23.4
[2023-09-09 07:00] VITALS: BP 144/93
[2023-09-09 07:58] LABS: % Basophils 0.3 % (0-2); % Eosinophils 1.3 % (0-6); % Immature Granulocytes 0.3 % (0-0.5); % Lymphocytes 27.4 % (20.5-51.1); % Monocytes 13.2 % (1.7-9.3); % Neutrophils 57.5 % (42.2-75.2); Absolute Eosinophils 0.1 10^3/uL (0-0.7); Absolute Lymphocytes 1.1 10^3/uL (1.2-3.4); Absolute Monocytes 0.5 10^3/uL (0.1-0.6); Absolute Neutrophils 2.3 10^3/uL (1.4-6.5); Hematocrit 28.6 % (39.0-52.0); Hemoglobin 9.6 g/dL (13.0-18.0); Mean Corp Hgb Conc. 33.6 g/dL (33.0-37.0); Mean Corpuscular Hgb 29.9 pg (27.0-31.0); Mean Corpuscular Volume 89.1 fL (80.0-94.0); Mean Platelet Volume 11.8 fL (7.4-10.4); Nucleated Red Blood Cells % 0 % (-); Platelet Count 139 10^3/uL (130-400); Red Blood Cell Count 3.21 10^6/uL (4.70-6.10); Red Cell Dist. Width 13.2 % (11.5-14.5); White Blood Cell Count 3.9 10^3/uL (4.8-10.8)
[2023-09-09] MEDS: ASPIR LOW (ENTERIC COATED) 81 MG PO (08:44)
[2023-09-09] MEDS: LIDOCAINE 4% PATCH 1 PATCH TOPICAL (08:44)
[2023-09-09] MEDS: PROTONIX 40 MG PO (08:44)
[2023-09-09 08:54] LABS: Blood Urea Nitrogen 2 mg/dl (9-20); Calcium 8.6 mg/dl (8.4-10.2); Carbon Dioxide 25 mmol/L (22-30); Chloride 98 mmol/L (98-107); Estimated Creatinine Clearance 99 ml/min; Glucose 97 mg/dl (70-99); Potassium 3.3 mmol/L (3.5-5.1); Sodium 135 mmol/L (135-145); eGFR > 60.00
[2023-09-09] MEDS: KCL 40 MEQ PO (09:49)
--- NOTE | 2023-09-09 11:06 | W.PN.CRS1 ---
Today's Communication / Plan
-
discharge
Assessment/Plan
-
Assessment: 53yo male with fever/sob/abdominal pain s/p recent ileostomy reversal
Plan:
1. WBC improved, now 3.9. Afebrile overnight. Vitals normal.
2. Antibiotics discontinued by medicine yesterday.
3. Tolerating a low residue diet.
4. Blood cultures NG x 4 days.
5. DVT prophylaxis.
6. Appreciate hospitalist input.
7. Okay for discharge today. Patient does not need antibiotics on discharge. He will follow-up with his regularly scheduled appointment with Dr. Mazariegos in 2 days. Patient in agreement.
Subjective Data
Subjective Data
Date of Service: September 09, 2023
Patient states he is ready to go home. He has been out of bed. He has flatus and bowel movements. He can urinate. He has pain but it is controlled. He has been on room air.
Objective Data
-
Vital Signs
Temp Pulse Resp BP Pulse Ox
98.1 F 57 17 144/93 93
09/09/23 07:00 09/09/23 07:00 09/09/23 07:00 09/09/23 07:00 09/09/23 07:00
Intake & Output
09/08/23 09/09/23 09/10/23
06:59 06:59 06:59
Intake Total 100 / 100 680 / 680
Balance 100 / 100 680 / 680
Intake:
Oral fluids 680 / 680
IV piggybacks 100 / 100
Other:
Number of approximated MODERATE 3 4
amounts of urine
Lab Results
09/09/23 07:38
09/09/23 07:38
Physical Exam
-
General: No Acute Distress and AOx3
Abdomen: Soft, Non Distended and Tender (Mild around incision site)
Skin: Warm and Dry
Incision: Clear, Dry, Intact
--- NOTE | 2023-09-09 11:16 | W.DS.TRANS ---
DC Summary - [employer]
-
Discharge Instructions:
Sleep Apnea Risk Low
Discharge Diagnosis/Procedures fever post op
Diet Low Residue
Activity No strenuous activity
Additional Activity No lifting over 10 pounds
Driving Restrictions Not until seen by your Dr
Bathing Restrictions OK to Shower
Wound Care Continue to place a 4 x 4 and tape over wound.
Anticipate gina being removed at your
appointment with Dr. Mazariegos.
You may also take Tylenol as needed for pain.
Maximum dose of Tylenol is 4000 mg in 24 hours.
Instructions: Low Fiber Diet
Stand-Alone Forms:
Changes to Home Medications: No
Discharge Medications:
DC Medications w/original date entered in [employer]
trazodone 50 mg tablet 50 mg PO HS sleep 04/24/23
folic acid 1 mg tablet 1 mg PO DAILY Supplement 05/29/23
sacubitril 24 mg-valsartan 26 mg tablet (Entresto) 0.5 tab PO BID Heart Failure 05/29/23
gabapentin 100 mg capsule 100 mg PO TID Neurological Condition 07/02/23
cholecalciferol (vitamin D3) 50 mcg (2,000 unit) tablet (Thera-D) 50 mcg PO DAILY vit d defeciency #30 tabs 07/07/23
magnesium oxide 500 mg PO DAILY Electrolyte Repletion #30 tabs 07/07/23
nicotine 21 mg/24 hr daily transdermal patch 1 patch transdermal DAILY Smoking Cessation 08/21/23
potassium 99 mg tablet 99 mg PO DAILY Supplement 08/21/23
aspirin 81 mg tablet,delayed release 81 mg PO DAILY Blood Clot Prevention/Tx 09/05/23
cyanocobalamin (vitamin B-12) 1,000 mcg tablet 1,000 mcg PO DAILY Supplement 09/05/23
metoprolol succinate 50 mg tablet,extended release 24 hr (Toprol XL) 50 mg PO BID Blood Pressure 09/05/23
pantoprazole 40 mg tablet,delayed release (Protonix) 40 mg PO DAILY GERD 09/05/23
rosuvastatin 20 mg tablet (Crestor) 20 mg PO QPM High Cholesterol 09/05/23
tramadol 50 mg tablet 50 mg PO HS Pain 09/05/23
Home Medication Changes
Pending Results: Yes
Additional Pending Results:
finalized blood cultures (no growth in 4 days)
[2023-09-10 01:01] LABS: Transferrin 173 mg/dL (200-360)
== END 2023-09-09 13:06 | disposition home or self-care (01) | DRG 206 ==
LOC: 3 WEST ACU 14:36
PROVIDERS: Internal Medicine; Physician Assistant; ADMITTING PHYSICIAN Surgery; EMERGENCY PHYSICIAN Emergency Medicine; FAMILY PHYSICIAN Internal Medicine; OTHER PHYSICIAN Internal Medicine
DX: J98.11 Atelectasis (principal); E87.1 Hypo-osmolality and hyponatremia; R18.8 Other ascites; I11.0 Hypertensive heart disease with heart failure; Z11.52 Encounter for screening for COVID-19; E87.6 Hypokalemia; Z87.891 Personal history of nicotine dependence; I50.9 Heart failure, unspecified
CPT/HCPCS: 71046; 71275; 74177; 76705; 80048; 80053; 81003; 82728; 83540; 83550; 83605; 83690; 83735; 84145; 84466; 85025; 85027; 87040; 87502; 87811; 93970; 96361; 96365; 96375; 99285; Q9967

== ENCOUNTER 2023-10-27 04:17 | Observation (INO) | payer BC, SELFPAY ==
[2023-10-26] VITALS (8 sets, daily range): BP systolic 122–156; BP diastolic 80–94; BMI 24.7
--- NOTE | 2023-10-26 18:08 | ED.GENMED ---
History of Present Illness
General
Chief Complaint: Alcohol Problem
Source: patient
Exam Limitations: none
Time Seen by Provider: 10/26/23 17:50
Travel History
Have you had any contact with someone who has COVID-19?: No
Do you have any symptoms of coronavirus? Fever > 100 degrees, chills, cough, shortness of breath, sore throat, loss of taste or smell, muscle aches, or headache?: No
History of Present Illness
History of Present Illness:
This is a 53 year old male that comes in with c/o alcohol abuse. States that he was sober for 6.5 months. Then on he had one drink. Then today he has been drinking all day. States that he drinks Rum and Coke. States that he just feels sick.
Patient refused inpatient detox at this time. States that he was nauseated, had dry heaves and he had chills and dizzy when he got up. States that he also had chest pain. States that he did have diarrhea yesterday. Denies any fever, SOB, vomiting,
headache, urinary burning.
Past History
Past History
ED Past Medical History: CHF, HTN, Hypercholesterolemia, [place] (X 2) and Other (Diverticulitis, Takotsubo, sepsis. Migraines, sciatica, PNA, Bowel obstruction, Colitis, UTI, )
ED Past Surgical History: Orthopedic (Left Achilles surgery, ) and Other (Loop ileostomy with reversal, Sinus surgery, )
Social History
Tobacco: Smoker
Alcohol: Chronic alcoholic (Sober for 6.5 months, )
Drug: None
Personal:
Living: with family
Review of Systems
Review of Systems
All Other Systems: ROS reviewed and negative except as documented in HPI and ROS
Constitutional: Reports chills; Denies fever
EENT: Reports no symptoms
Respiratory: Denies cough or trouble breathing
Cardiac: Reports chest pain
ABD/GI: Reports abdominal pain, nausea and diarrhea (Yesterday); Denies vomiting
: Reports no symptoms; Denies dysuria, frequency or urgency
Musculoskeletal: Reports no symptoms
Skin: Reports no symptoms
Neurological: Reports dizzy; Denies headache
Psychiatric: Reports no symptoms
Phy Exam
General Physical Exam
General Presentation: no apparent distress
General age: appears stated age
General Skin: warm and dry
General Habitus: normal
General Mental: alert
General Hydration: dry mucous membranes
ENT Exam
ENT Exam: TM's normal, pharynx normal and neck supple
Eye Exam
Eye Exam: EOMI
Cardiovascular Exam
Cardiovascular Exam: regular rate/rhythm, no edema, no murmur and normal peripheral pulses
Pulmonary Exam
Pulmonary Exam: lungs clear, no respiratory distress, no rales, chest non tender, no crackles, no rhonchi, no wheezing and no cough
Gastrointestinal Exam
Gastrointestinal Exam: normal bowel sounds, soft, no organomegaly, no pulsatile mass, non distended and tender (Generalized tenderness which patient states is normal since his surgery)
Musculoskeletal Exam
Musculoskeletal Exam: full ROM and no edema
Skin Exam
Skin Exam: normal color, warm/dry, no rash and no petechia
Psychiatric Exam
Psychiatric Exam: normal mood/affect
Scores
Withdrawal Assessment of Alcohol
Withdrawal Assessment Completed?: Yes
Nausea and Vomiting: Mild nausea with no vomiting
Tactile Disturbances: None
Tremor: Not visible, but can be felt fingertip to fingertip
Auditory Disturbances: Not present
Paroxysmal Sweats: No sweat visible
Visual Disturbances: Not present
Anxiety: No anxiety, at ease
Headache, Fullness in Head: Not present
Agitation: Normal activity
Orientation and clouding of sensorium: Oriented and can do serial additions
Total CIWA Score: 2
Alcohol Withdrawal Medication Recommendation: Equal to MSAS Score 0-4. Monitor & re-assess q2hrs, NO MEDICATION NEEDED
Course
Orders/Labs/Results
Orders:
Orders
10/26/23 18:07
Urine Drug Abuse Screen Urgent
0.9% Sodium Chloride 1000 ml [Nss] 1,000 ml IV BOLUS
10/26/23 18:08
Ondansetron Injectable [Zofran] 4 mg IV NOW STA
10/26/23 18:11
Electrocardiogram (*1) Urgent
Reason for Study: Chest Pain
EKG- Treatment ONCE
10/26/23 18:16
Pantoprazole [Protonix IV] 40 mg IV NOW STA
10/26/23 18:24
0.9% Sodium Chloride 1000 ml [Nss] 1,000 ml Mvi, Adult [Multivitamin] 10 ml Thiamine Injection 100 mg IV 250 mls/hr
10/26/23 18:28
Alcohol Urgent
COVID-19 Antigen Urgent
Source: Nasal Swab
Complete Blood Count/With Diff Urgent
Comprehensive Metabolic Panel Urgent
Troponin I Urgent
10/26/23 21:20
Lorazepam [Ativan] 1 mg PO NOW STA
10/26/23 23:34
Ondansetron Injectable [Zofran] 4 mg .ROUTE .STK-MED ONE
10/26/23 23:36
Ondansetron Injectable [Zofran] 4 mg IV NOW STA
10/27/23 00:30
CT Head W/o Iv Contrast Urgent
Reason For Exam: dizziness
Abnormal Lab Results
10/26/23
18:28
WBC 11.4 H 10^3/uL
(4.8-10.8)
RBC 4.43 L 10^6/uL
(4.70-6.10)
Abs Immat Gran (auto) 0.1 H 10^3/uL
(0-0.05)
Absolute Neuts (auto) 9.8 H 10^3/uL
(1.4-6.5)
Neutrophils % 85.7 H %
(42.2-75.2)
Lymphocytes % 11.0 L %
(20.5-51.1)
Carbon Dioxide 19 L mmol/L
(22-30)
Creatinine 1.4 H mg/dL
(0.7-1.3)
Glucose 109 H mg/dl
(70-99)
10/26/23 18:28
10/26/23 18:28
WBC slightly elevated, carbon dioxide slightly low. Glucose nonfasting. Alcohol 126, COVID negative. Troponin <0.012
Vital Signs
Initial and Last Documented VS:
Initial Vital Signs
Pulse Resp BP Pulse Ox
82 18 122/82 96
10/26/23 17:36 10/26/23 17:36 10/26/23 17:36 10/26/23 17:36
Last Documented Vital Signs
Pulse Resp BP Pulse Ox
82 18 122/82 96
10/26/23 17:36 10/26/23 17:36 10/26/23 17:36 10/26/23 17:36
MDM/Problems Addressed
Differential Diagnosis Includes:
Alcohol abuse, COVID,
MDM/Problems Addressed:
This is a 53 year old male that comes in with c/o alcohol use. States that he just feels sick. Patient was clean for 6.5 months. States that he had one drink on and they was drinking all day today.
Will check labs, IV fluids and Banana bag. Urine Drug and COVID
Back into see patient. Reviewed labs. Patient states that he is feeling better. Offered patient again [facility] for inpatient therapy for Detox. Patient at this time says that he will talk with them. [facility] contacted.
Patient was seen by [facility] and is refusing inpatient. Patient was given information to follow up with the PCP and possible ask for Vivitrol. Patient was tremulous when [facility] in the room. Will give Ativan 1mg po now.
Into see patient. Patient is c/o Dizziness. Nursing states that when they sat him up in bed he was very dizzy. Will get CT of the head. Patient has only very slight tremors noted of hands.
back into see patient. Explained that his CT of the head is normal. Patient attempted to sit up and remains very dizzy. Will admit and also give Antivert. Hospitalist notified.
Chronic conditions affecting care:
Alcohol abuse,
Acute Exacerbation and/or Progression of Chronic Illness:
NA
*Radiology
Radiology exam reviewed: radiology read reviewed (CT head night hawk- No acute intracranial hemorrhage, herniation or hydrocephalus. )
*Pulse Oximetry
Patient hypoxic: no
*EKG
Interpreted by ED Provider?: Yes
Heart Rate: 69
Rate: normal
Rhythm: sinus
Mead: normal axis
Interval: normal interval
QRS Pattern: normal QRS
Ischemia: no ischemia (Checked by Dr. Reynoso)
*Fence Post Driver Interpretation
Rate: normal
Heart Rate: 76
Rhythm: sinus
*Critical Care Note
Total Time (30-74mins, 75-104mins- exclusive of procedures): Not Applicable
ED Attending Note
-
Portions of this chart may have been created with voice recognition software.� Occasional wrong word or��sound alike� substitutions may have occurred due to the inherent limitations of voice recognition software.
Discharge Plan
Departure
Patient Disposition: Admit
Date of Disposition: 10/27/23
Time of Disposition: 02:01
Admit to: Telemetry
Presentation/result/management discussed w/ accepting MD/DO: Hospitalist
Patient with high blood pressure during this ER visit?: No
Condition: Good
Covid-19: Not Applicable
Discharge Problem:
Dizziness, Alcohol abuse
Prescriptions:
No Action
trazodone 50 mg Tablet
50 mg PO HS
Entresto 24-26 mg tablet
0.5 tab PO BID
folic acid 1 mg Tablet
1 mg PO DAILY
gabapentin 100 mg capsule
100 mg PO TID
magnesium oxide 500 mg Tablet
500 mg PO DAILY Qty: 30 0RF
cholecalciferol (vitamin D3) [Thera-D] 50 mcg (2,000 unit) tablet
50 mcg PO DAILY Qty: 30 0RF
potassium 99 mg Tablet
99 mg PO DAILY
nicotine 21 mg/24 hr Patch 24 Hour
1 patch TRANSDERMAL DAILY
metoprolol succinate [Toprol XL] 50 mg Tablet Extended Release 24 Hr
50 mg PO BID
cyanocobalamin (vitamin B-12) 1,000 mcg Tablet
1,000 mcg PO DAILY
aspirin 81 mg Tablet,Delayed Release (Dr/Ec)
81 mg PO DAILY
pantoprazole [Protonix] 40 mg Tablet,Delayed Release (Dr/Ec)
40 mg PO DAILY
rosuvastatin [Crestor] 20 mg Tablet
20 mg PO QPM
tramadol 50 mg tablet
50 mg PO HS
Referrals:
UNKNOWN - PT DOES,NOT KNOW [Unknown Provider] -
Interventions
Interventions:
*Risk Screen - Suicide Last Done: 10/26/23 17:36
*General Assessment Last Done: 10/26/23 17:36
*Neglect/Abuse Screening Last Done: 10/26/23 17:36
ED- Fall Risk Assessment Last Done: 10/26/23 18:28
*ED COVID-19 Vaccine History Last Done: 10/26/23 17:36
ED- Neurological Assessment Last Done: 10/26/23 18:28
ED-Psychological Assessment Last Done: 10/26/23 18:28
[2023-10-26] MEDS: NSS 1000 IV (18:47)
[2023-10-26] MEDS: ZOFRAN 4 MG IV ×2 (18:48→23:36)
[2023-10-26] MEDS: PROTONIX IV 40 MG IV (18:51)
[2023-10-26 18:54] LABS: % Basophils 0.4 % (0-2); % Immature Granulocytes 0.4 % (0-0.5); % Monocytes 2.5 % (1.7-9.3); % Neutrophils 85.7 % (42.2-75.2); Absolute Immature Granulocytes 0.1 10^3/uL (0-0.05); Absolute Lymphocytes 1.3 10^3/uL (1.2-3.4); Absolute Monocytes 0.3 10^3/uL (0.1-0.6); Absolute Neutrophils 9.8 10^3/uL (1.4-6.5); Hematocrit 40.2 % (39.0-52.0); Hemoglobin 13.5 g/dL (13.0-18.0); Mean Corp Hgb Conc. 33.6 g/dL (33.0-37.0); Mean Corpuscular Hgb 30.5 pg (27.0-31.0); Mean Corpuscular Volume 90.7 fL (80.0-94.0); Mean Platelet Volume 10.4 fL (7.4-10.4); Nucleated Red Blood Cells % 0 % (-); Platelet Count 211 10^3/uL (130-400); Red Blood Cell Count 4.43 10^6/uL (4.70-6.10); Red Cell Dist. Width 12.4 % (11.5-14.5); White Blood Cell Count 11.4 10^3/uL (4.8-10.8)
[2023-10-26] MEDS: MULTIVITAMIN 1011 ML IV (18:55)
[2023-10-26] MEDS: MULTIVITAMIN 1011 MG IV (18:55)
[2023-10-26 19:06] LABS: ALT (SGPT) 14 U/L (0-50); AST (SGOT) 24 U/L (17-59); Albumin 4.8 g/dl (3.5-5.0); Alcohol 126 mg/dl; Alkaline Phosphatase 70 U/L (38-126); Blood Urea Nitrogen 15 mg/dl (9-20); Calcium 9.2 mg/dl (8.4-10.2); Carbon Dioxide 19 mmol/L (22-30); Chloride 107 mmol/L (98-107); Glucose 109 mg/dl (70-99); Potassium 4.5 mmol/L (3.5-5.1); Sodium 139 mmol/L (135-145); Total Bilirubin 0.5 mg/dl (0.2-1.3); Total Protein 7.9 g/dl (6.3-8.2); eGFR > 60.00
[2023-10-26 19:09] LABS: COVID-19 Antigen Negative (Negative)
[2023-10-26 19:33] LABS: Troponin I < 0.012 ng/ml
[2023-10-26] MEDS: ATIVAN 1 MG PO (22:02)
[2023-10-27] VITALS (18 sets, daily range): BP systolic 124–174; BP diastolic 72–103; PULSE 74; O2SAT 98; BMI 23.9
[2023-10-27] MEDS: ANTIVERT 25 MG PO ×2 (02:20→12:20)
--- NOTE | 2023-10-27 02:22 | HPS.HSE ---
Family Physician
-
Family Physician: Sanjay Tovar
Chief Complaint
-
Dizziness, ETOH binge drinking
History of Present Illness
53M HX CHF, MO , HX ETOH use disorder pw reported relapse ETOH use disorder and admits binge drinking the whole day yesterday. At ER he received IV NS 1 L. He was trmulous. Eval by [facility] and declined IP detox.
Reports N an dry heave, Dizziness with sitting which persist. NEG HCT for acute process. Unremarkable labs except metabilic acidosis and Mild NONA suspect pre renal.
Medical History
Past Medical History
Past Medical History: Reports Other
Additional Past Medical History:
CHF
HTN
Hypercholesterolemia
[place] (X 2)
Diverticulitis
Takotsubo
Sepsis.
Migraines
Sciatica
PNA,
Bowel obstruction
Colitis
UTI
Past Surgical History: Reports Other
Additional Past Surgical History:
Orthopedic (Left Achilles surgery,
Loop ileostomy with reversal
Sinus surgery
Social History
Tobacco: Smoker
Alcohol: Binge drinker
Drug: None
Personal:
Living: With Family
Family History
Family History: Not pertinent
Allergies / Home Medications
Allergies reflects when Allergies were last updated in [employer].
Home Medications with original date entered in [employer]
Allergy/Medication List:
Allergies
Allergy/AdvReac Type Severity Reaction Status Date / Time
codeine Allergy Nausea / Verified 10/26/23 17:37
Vomiting
ibuprofen Allergy Unknown Verified 10/26/23 18:23
morphine Allergy Unknown Verified 10/26/23 17:37
Home Medications
trazodone 50 mg tablet 50 mg PO HS sleep 04/24/23
folic acid 1 mg tablet 1 mg PO DAILY Supplement 05/29/23
sacubitril 24 mg-valsartan 26 mg tablet (Entresto) 0.5 tab PO BID Heart Failure 05/29/23
gabapentin 100 mg capsule 100 mg PO TID Neurological Condition 07/02/23
cholecalciferol (vitamin D3) 50 mcg (2,000 unit) tablet (Thera-D) 50 mcg PO DAILY vit d defeciency #30 tabs 07/07/23
magnesium oxide 500 mg PO DAILY Electrolyte Repletion #30 tabs 07/07/23
nicotine 21 mg/24 hr daily transdermal patch 1 patch transdermal DAILY Smoking Cessation 08/21/23
potassium 99 mg tablet 99 mg PO DAILY Supplement 08/21/23
aspirin 81 mg tablet,delayed release 81 mg PO DAILY Blood Clot Prevention/Tx 09/05/23
cyanocobalamin (vitamin B-12) 1,000 mcg tablet 1,000 mcg PO DAILY Supplement 09/05/23
metoprolol succinate 50 mg tablet,extended release 24 hr (Toprol XL) 50 mg PO BID Blood Pressure 09/05/23
pantoprazole 40 mg tablet,delayed release (Protonix) 40 mg PO DAILY GERD 09/05/23
rosuvastatin 20 mg tablet (Crestor) 20 mg PO QPM High Cholesterol 09/05/23
tramadol 50 mg tablet 50 mg PO HS Pain 09/05/23
Review of Systems
-
Constitutional: Reports No Symptoms
EENT: Reports No Symptoms
Respiratory: Reports No Symptoms
Cardiac: Reports No Symptoms
Abdomen/GI: Reports No Symptoms
: Reports No Symptoms
Musculoskeletal: Reports No Symptoms
Skin: Reports No Symptoms
Neurological: Reports Other (dizziness )
Endocrine: Reports No Symptoms
Hematologic/Lymphatic: Reports No Symptoms
Psych: Reports No Symptoms
Physical Exam
Vital Signs
Vital Signs
Pulse Resp BP Pulse Ox
71 10 154/89 89
10/27/23 02:00 10/27/23 02:00 10/26/23 23:00 10/27/23 02:00
Physical Exam
General: No Apparent Distress, Conversant and Other
HEENT: NormoCephalic and Anicteric
Respiratory: Clear; No Wheezes, Rales or Rhonchi
Cardiac: S1/S2 and Regular Rhythm; No Tachycardia
Breast: Deferred by me
GI: Soft, Non Tender, Non Distended and Normal Bowel Sounds
Rectal: Deferred by Provider
Genito-urinary: Deferred by me
Musculoskeletal: No Edema
Skin: No Jaundice
Neuro: AO x 3
Psych: Anxious
Laboratory Results
-
10/26/23 18:28
10/26/23 18:28
Laboratory Results
Total Bilirubin 0.5 mg/dl (0.2-1.3) 10/26/23 18:28
AST 24 U/L (17-59) 10/26/23 18:28
ALT 14 U/L (0-50) 10/26/23 18:28
Alkaline Phosphatase 70 U/L (38-126) 10/26/23 18:28
Troponin I < 0.012 ng/ml 10/26/23 18:28
Data Reviewed
-
CT Scan: Report Reviewed by me
Medical Tests (Nuc Med, Echo, EKG etc): Report Reviewed by me
Lab Data: Labs Reviewed by me
Old Records: Reviewed
Impression/Plan
-
Data
WCC 11.4 Nl MCV
CO2 19
Cr 1.4 - 0.9 on 09/09/23
eGFR > 60
NEG TPNI
ETOH 126
Pending UDS
NEG Covid
HCT : No acute intracranial hemorrhage, herniation or hydrocephalus
EKG
NORMAL SINUS RHYTHM
NONSPECIFIC T WAVE ABNORMALITY
ABNORMAL ECG
WHEN COMPARED WITH ECG OF 07-JUL-2023 04:15,
NONSPECIFIC T WAVE ABNORMALITY NOW EVIDENT IN LATERAL LEADS
Echo 05/22/2023
- EF 55%
- Stage I diastolic dysfunction.
-Normal RV function.
ASSESSMENT & PLAN
Acute dizziness with sitting up - s/p 1 L NS
Relapse ETOH use disorder after abstinence for 6 months
Binge drinking las 24H
Tremulous
- [facility] delined IP detox
- ETPH level 126
- Pending UDS
- IV NS
- Ortho VSS
- fall precaution
- MSAS protocol
- PT/OT
- To consider Neuro Cs in AM if Dizziness persist in AM
- Psych consult
NONA with metabolic acidosis suspect pre reanl Dizzines, ETOH bingdizziness
- Held Entresto
- IVF and trend Cr
Essential hypertension
- cont metoprolol
HX Takotsubo cardiomyopathy
- on Metoprol sux
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
Diverticulosis
S/P Robotic sigmoidectomy with diverting loop ileostomy on 06/06/2023- s/p reversal of illestomy
GERD
Anxiety
HX migraines
Fatty liver
Insomnia; on trazodone
Former smoker
DVT Px: SQH
Full code
Obs TLM
[2023-10-27] MEDS: NSS 1000 IV ×2 (03:28→15:40)
[2023-10-27 07:09] LABS: B-Hydroxybutyrate 0.09 mmol/L (0.02-0.27)
[2023-10-27] MEDS: THIAMINE INJECTION 200 MG IV ×2 (08:32→22:02)
[2023-10-27] MEDS: FOLVITE 1 MG PO (08:32)
[2023-10-27] MEDS: HEPARIN 5000 UNITS SC ×2 (08:33→22:03)
--- NOTE | 2023-10-27 09:22 | CM ---
CM met with patient in room. OBS letter given. Patient lives independently with with. Remote history of VN. No history of SNF or DME. Patient is active with his PCP. Patient uses [facility] for medication services.
Patient declines inpatient rehab at this time.
PLAN: Home no needs.
--- NOTE | 2023-10-27 10:59 | CS.PSYCHR ---
Consult Summary - Psychiatry
-
Pt is 53 yo male, presented to ED with N/V/dry heaves and dizziness, after an all-day alcohol binge. Pt reports he was sober for 6 1/2 months and relapsed x one day. Pt states he has stress, 'feel like I can't catch up.' Pt denies signficant
depression or anxiety. Pt states he sees a psychiatrist, is prescribed Trazodone prn. Pt denies any SI. Pt appears in mild distress, somewhat slow to answer. No over signs of alcohol withdrawal. No agitation.
PMH: CHF, PR x 2, high cholesterol, migraines, sciatica, colitis, hx of bowel obstruction, GERD
Psych Hx: outpatient psychiatrist- did not give any specifics when asked. Denies any hx of inpatient tx
SH: , living with family, on disability since colorectal surgery. 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
MSE: alert and oriented, somewhat slow to respond. Speech coherent, thought clear. No signs of psychosis. Mood mildly dysphoric, affect stable. Denies severe depression, denies SI
Imp: Alcohol use d/o, one-day relapse in binge fashion, after 6- month period of sobriety
Rec: Alcohol withdrawal precautions
continue Trazodone prn
Return to outpatient follow up- should include alcohol use tx, when medically stable
Psychiatry will sign off. Please re-consult for any new/immediate concerns
--- NOTE | 2023-10-27 11:49 | W.PN.HOSP.TC ---
Today's Communication/Plan
-
Continue supportive care
Assessment / Plan
Assessment / Plan
Gen-AAOx3, NAD
HEENT-NC, AT, anicteric, clear oral mm
Neck-supple
CV-reg, no M, +S1/S2
Lungs-clear B/L
Abd-soft, NT, ND
Ext-no edema
Musculoskeletal-no cyanosis, clubbing
Skin-warm and dry
Neuro-grossly non-focal, no nystagmus, no dysmetria
Psych-calm, cooperative
NONA -present on admission. Likely due to volume depletion. Repeat labs pending. Continue IV fluids.
Vertigo -improved with resting his head down, worsened with head rotation towards the right. No cerebellar signs. No nystagmus. Suspect peripheral vertigo. Continue PT. As needed meclizine.
Alcohol use disorder -binge drinking episode 2 days ago. Continue supportive care. Treat for alcohol withdrawal syndrome.
Psychiatry assessment noted.
Essential hypertension -stable.
Chronic CHF reduced EF -stable.
Hyperlipidemia -on Crestor.
CAD -history of [place] x 2.
Full code
Anticipated Discharge: 24 - 48 hours
Subjective/Interval History
-
Date of Service: October 27, 2023
Patient seen and examined. Complaining of ongoing vertigo with movement.
Objective Data
-
Labs:
Laboratory Results
10/27/23
08:41
WBC Pending
Hgb Pending
Hct Pending
Plt Count Pending
Sodium Pending
Potassium Pending
Chloride Pending
Carbon Dioxide Pending
BUN Pending
Creatinine Pending
Glucose Pending
Calcium Pending
Vital Signs:
Vital Signs
Temp Pulse Resp BP Pulse Ox
98.2 F 66 15 135/78 90
10/27/23 02:24 03/19/24 06:15 10/27/23 06:15 10/27/23 06:00 10/27/23 06:15
I&O
10/26/23 10/27/23 10/28/23
06:59 06:59 06:59
Intake Total 320 / 320
Balance 320 / 320
Review of Systems
-
History Source: Patient
All other systems: Reviewed and negative
[2023-10-27 13:41] LABS: % Basophils 0.4 % (0-2); % Eosinophils 0.2 % (0-6); % Immature Granulocytes 0.3 % (0-0.5); % Lymphocytes 26.2 % (20.5-51.1); % Monocytes 7.1 % (1.7-9.3); % Neutrophils 65.8 % (42.2-75.2); Absolute Lymphocytes 2.4 10^3/uL (1.2-3.4); Absolute Monocytes 0.7 10^3/uL (0.1-0.6); Absolute Neutrophils 6.1 10^3/uL (1.4-6.5); Hematocrit 33.6 % (39.0-52.0); Hemoglobin 11.1 g/dL (13.0-18.0); Mean Corpuscular Hgb 30.7 pg (27.0-31.0); Mean Corpuscular Volume 93.1 fL (80.0-94.0); Mean Platelet Volume 10.4 fL (7.4-10.4); Nucleated Red Blood Cells % 0 % (-); Platelet Count 168 10^3/uL (130-400); Red Blood Cell Count 3.61 10^6/uL (4.70-6.10); Red Cell Dist. Width 12.5 % (11.5-14.5); White Blood Cell Count 9.2 10^3/uL (4.8-10.8)
[2023-10-27 14:02] LABS: Blood Urea Nitrogen 19 mg/dl (9-20); Carbon Dioxide 23 mmol/L (22-30); Chloride 106 mmol/L (98-107); Estimated Creatinine Clearance 74 ml/min; Glucose 92 mg/dl (70-99); Potassium 4.3 mmol/L (3.5-5.1); Sodium 132 mmol/L (135-145); eGFR > 60.00
--- NOTE | 2023-10-27 18:17 | PTCARENOTE ---
received pt to [facility] from ED. Assessment complete, VS taken, elevated BP 174/99, re-took BP once pt was settled, now 146/89. Notified Dr Rossi about missing BP meds for pt, pt provided written list he carries. Pt oriented to room, call parker within
reach. Pt on MSAS, began Q4 at 0905 today. Per protocol, continue for 48 hrs with MSAS 1-4 before d'c'ing
--- NOTE | 2023-10-27 18:56 | W.PN.UPDATE ---
Update Note
Progress Note Update
Addendum
Received TT from nurse because blood pressure medications and home medications were not placed for the patients.
I placed what he is due for tonight and AM PPI.
End
[2023-10-27] MEDS: NEURONTIN 100 MG PO (21:57)
[2023-10-27] MEDS: DESYREL 50 MG PO (22:02)
[2023-10-27 22:16] LABS: Amphetamines Negative (Negative); Barbiturates Negative (Negative); Benzodiazepines Positive (Negative); Buprenorphine Negative (Negative); Cocaine Negative (Negative); Marijuana Negative (Negative); Methadone Negative (Negative); Methamphetamines Negative (Negative); Opiates Negative (Negative); Phencyclidine Negative (Negative); Tricyclic Antidepressants Negative (Negative)
[2023-10-27 22:34] LABS: Fentanyl, Urine Negative (Negative)
[2023-10-28 00:27] VITALS: BP 169/94
[2023-10-28 03:48] VITALS: BP 146/86
[2023-10-28] MEDS: NSS 1000 IV (05:56)
[2023-10-28 06:46] LABS: Blood Urea Nitrogen 20 mg/dl (9-20); Calcium 9.3 mg/dl (8.4-10.2); Carbon Dioxide 25 mmol/L (22-30); Chloride 101 mmol/L (98-107); Estimated Creatinine Clearance 69 ml/min; Glucose 94 mg/dl (70-99); Potassium 4.3 mmol/L (3.5-5.1); Sodium 133 mmol/L (135-145); eGFR > 60.00
[2023-10-28 07:26] VITALS: BP 149/98
[2023-10-28] MEDS: HEPARIN 5000 UNITS SC (07:54)
[2023-10-28] MEDS: PROTONIX 40 MG PO (07:54)
[2023-10-28] MEDS: NEURONTIN 100 MG PO (07:55)
[2023-10-28] MEDS: FOLVITE 1 MG PO (07:56)
[2023-10-28] MEDS: THIAMINE INJECTION 200 MG IV (07:56)
--- NOTE | 2023-10-28 10:35 | W.PN.HOSP.TC ---
Today's Communication/Plan
-
Stop IV fluids
Assessment / Plan
Assessment / Plan
Gen-AAOx3, NAD
HEENT-NC, AT, anicteric, clear oral mm
Neck-supple
CV-reg, no M, +S1/S2
Lungs-clear B/L
Abd-soft, NT, ND
Ext-no edema
Musculoskeletal-no cyanosis, clubbing
Skin-warm and dry
Neuro-grossly non-focal, no nystagmus, no dysmetria
Psych-calm, cooperative
NONA -present on admission. Likely due to volume depletion. Improved. Can stop IV fluids.
Vertigo -peripheral. Symptoms resolved.
Alcohol use disorder -binge drinking episode 3 days ago. Continue supportive care. Treat for alcohol withdrawal syndrome. Patient interested in abstaining.
Psychiatry assessment noted.
Essential hypertension -stable.
Chronic CHF reduced EF -stable.
Hyperlipidemia -on Crestor.
CAD -history of [place] x 2.
Full code
Dispo -await PT input, anticipate discharge this afternoon.
Anticipated Discharge: Today
Subjective/Interval History
-
Date of Service: October 28, 2023
Patient seen and examined. Feeling much better. Denies vertigo or dizziness. Denies unsteadiness with walking today.
Objective Data
-
Labs:
Laboratory Results
10/28/23
05:50
Sodium 133 L
Potassium 4.3
Chloride 101
Carbon Dioxide 25
BUN 20
Creatinine 1.3
Glucose 94
Calcium 9.3
Vital Signs:
Vital Signs
Temp Pulse Resp BP Pulse Ox
98.1 F 58 18 149/98 95
10/28/23 07:26 10/28/23 07:26 10/28/23 07:26 10/28/23 07:10/28/23 07:26
I&O
10/27/23 10/28/23 10/29/23
06:59 06:59 06:59
Intake Total 320 / 320 1860 / 1860
Output Total 600 / 600
Balance 320 / 320 1260 / 1260
Review of Systems
-
History Source: Patient
All other systems: Reviewed and negative
[2023-10-28 11:26] VITALS: BP 169/90
[2023-10-28 11:39] VITALS: BMI 23.8
[2023-10-28] MEDS: VITAMIN B-12 1000 MCG PO (14:09)
[2023-10-28] MEDS: TOPROL XL 50 MG PO (14:09)
--- NOTE | 2023-10-28 15:25 | W.DS.TRANS ---
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
-
Discharge Instructions:
Discharge Diagnosis/Procedures Alcohol intoxication, alcohol use disorder,
vertigo, acute kidney injury
Diet 2 Gram Sodium,Low Cholesterol,Low Fat
Activity As tolerated
Driving Restrictions As prior to admission
Bathing Restrictions None
Instructions:
Stand-Alone Forms:
Changes to Home Medications: No
Discharge Medications:
DC Medications w/original date entered in [employer]
trazodone 50 mg tablet 50 mg PO HS sleep 04/24/23
folic acid 1 mg tablet 1 mg PO NOON Supplement 05/29/23
sacubitril 24 mg-valsartan 26 mg tablet (Entresto) 0.5 tab PO BID Heart Failure 05/29/23
magnesium oxide 500 mg PO DAILY Electrolyte Repletion #30 tabs 07/07/23
nicotine 21 mg/24 hr daily transdermal patch 1 patch transdermal DAILYPRN PRN smoking cessation 08/21/23
potassium 99 mg tablet 99 mg PO NOON Supplement 08/21/23
aspirin 81 mg tablet,delayed release 81 mg PO HS Blood Clot Prevention/Tx 09/05/23
cyanocobalamin (vitamin B-12) 1,000 mcg tablet 1,000 mcg PO DAILY Supplement 09/05/23
metoprolol succinate 50 mg tablet,extended release 24 hr (Toprol XL) 50 mg PO BID Blood Pressure 09/05/23
pantoprazole 40 mg tablet,delayed release (Protonix) 40 mg PO DAILY GERD 09/05/23
rosuvastatin 20 mg tablet (Crestor) 20 mg PO QPM High Cholesterol 09/05/23
acetaminophen 325 mg tablet (Tylenol) 650 mg PO DAILYPRN PRN mild pain 10/27/23
cholecalciferol (vitamin D3) 50 mcg (2,000 unit) tablet 50 mcg PO DAILY Supplement 10/27/23
Home Medication Changes
Pending Results: No
== END 2023-10-28 15:39 | disposition home or self-care (01) ==
LOC: 3 WEST ACU 04:17
PROVIDERS: Clinical Nurse Specialist Family Health; ADMITTING PHYSICIAN Internal Medicine; ATTENDING PHYSICIAN Hospitalist; EMERGENCY PHYSICIAN Emergency Medicine; FAMILY PHYSICIAN Internal Medicine; OTHER PHYSICIAN Psychiatry & Neurology Psychiatry
DX: F10.129 Alcohol abuse with intoxication, unspecified (principal); N17.9 Acute kidney failure, unspecified; E86.9 Volume depletion, unspecified; R42 Dizziness and giddiness; E87.20 Acidosis, unspecified; E78.5 Hyperlipidemia, unspecified; K21.9 Gastro-esophageal reflux disease without esophagitis; F41.9 Anxiety disorder, unspecified; K76.0 Fatty (change of) liver, not elsewhere classified; G47.00 Insomnia, unspecified; I50.9 Heart failure, unspecified; I11.0 Hypertensive heart disease with heart failure; E78.00 Pure hypercholesterolemia, unspecified; I25.2 Old myocardial infarction; F17.200 Nicotine dependence, unspecified, uncomplicated; I25.10 Atherosclerotic heart disease of native coronary artery without angina pectoris; Z87.01 Personal history of pneumonia (recurrent); Z11.52 Encounter for screening for COVID-19; Z87.440 Personal history of urinary (tract) infections; Z88.6 Allergy status to analgesic agent; Z88.5 Allergy status to narcotic agent; Z90.49 Acquired absence of other specified parts of digestive tract
CPT/HCPCS: 70450; 80048; 80053; 80306; 80307; 82010; 82077; 84484; 85025; 87811; 93005; 96365; 96366; 96375; 96376; 97116; 99285; G0378